=== PATIENT | female | born 1960 | race Caucasian/White ===

== ENCOUNTER 2017-11-06 09:52 | Outpatient (CLI) | payer OTHER ==
--- NOTE | 2017-11-07 11:38 | MMO ---
BILATERAL SCREENING MAMMOGRAMS: Date: 11/06/17 Comparison made to prior exams from 2014 and 2015. This patient's mammogram was interpreted with the assistance of computer-aided detection. FINDINGS: Both breasts show fatty replacement. No distortion, mass, or suspicious calcification. No interval ch hosea. Recommend one year follow-up. IMPRESSION: BIRADS 1: Negative POS: DUC
== END 2017-11-06 09:53 | disposition home or self-care (01) ==
LOC: SCSMAMMO 09:52
PROVIDERS: ATTEND Obstetrics & Gynecology
DX: Z12.31 Encounter for screening mammogram for malignant neoplasm of breast (principal)
CPT/HCPCS: 77067

== ENCOUNTER 2018-12-03 09:52 | Outpatient (CLI) | payer OTHER ==
--- NOTE | 2018-12-03 10:36 | MMO ---
Bilateral MAMMO Bilat Screen [facility]. CLINICAL HISTORY: Patient is 58 years old and is seen for screening. The patient has the following family history of breast cancer: sister, at age 24. The patient has no personal history of cancer. VIEWS: The views performed were: bilateral craniocaudal with tomosynthesis and bilateral mediolateral oblique with tomosynthesis. FILMS COMPARED: The present examination has been compared to prior imaging studies performed at [facility] on 06/11/2013, 07/27/2014, 07/27/2015, 09/19/2016 and 11/06/2017. MAMMOGRAM FINDINGS: There are scattered fibroglandular densities. There are benign appearing calcifications seen in the right breast. There are no suspicious masses, calcifications or areas of architectural distortion. IMPRESSION: CALCIFICATIONS IN THE RIGHT BREAST ARE BENIGN. A ROUTINE FOLLOW-UP MAMMOGRAM IN 1 YEAR IS RECOMMENDED. THE RESULTS OF THIS EXAM WERE SENT TO THE PATIENT. ACR BI-RADS Category 2 - Benign finding MAMMOGRAPHY NOTE: 1. A negative mammogram report should not delay a biopsy if a dominant of clinically suspicious mass is present. 2. Approximately 10% to 15% of breast cancers are not detected by mammography. 3. Adenosis and dense breasts may obscure an underlying neoplasm.
== END 2018-12-03 09:53 | disposition home or self-care (01) ==
LOC: BICMAMMO 09:52
PROVIDERS: ATTEND Obstetrics & Gynecology
DX: Z12.31 Encounter for screening mammogram for malignant neoplasm of breast (principal); R92.1 Mammographic calcification found on diagnostic imaging of breast; Z80.3 Family history of malignant neoplasm of breast
CPT/HCPCS: 77063; 77067

== ENCOUNTER 2019-01-28 07:01 | Outpatient (CLI) | payer OTHER ==
--- NOTE | 2019-01-28 07:52 | MRI ---
Lumbar spine MRI without contrast: 01/28/2019 COMPARISON: None HISTORY: Right-sided sciatica, right lower extremity radiculopathy TECHNIQUE: Multiplanar multisequence MR imaging of the lumbar spine obtained without contrast. FINDINGS: The sagittal STIR imaging demonstrates no focal area of osseous marrow edema. Lumbar vertebral body height and alignment appears within normal limits. On the basis of 5 lumbar type vertebral bodies, conus medullaris terminates at the L1-2 level. T12-L1: Intervertebral disc height and signal intensity is within normal limits. Mild bilateral facet hypertrophy. Minimal disc bulge with no significant central canal or neural foraminal stenosis. L1-2: Mild bilateral facet hypertrophy. Disc desiccation and mild disc space narrowing. Mild anterior osteophyte formation. No significant central canal or neural foraminal stenosis. L2-3: There is disc space narrowing, disc desiccation, and minimal disc bulge with no associated cent ral canal stenosis. Mild bilateral facet hypertrophy. No significant neural foraminal stenosis. Anterior osteophyte formation. L3-4: There is disc space narrowing and disc desiccation. There is a small foraminal disc protrusion on the left. There is mild bilateral facet hypertrophy. There is mild/moderate left neural foraminal stenosis. Mild right neural foraminal stenosis. No significant central canal stenosis. L4-5: There is disc space narrowing and disc desiccation with disc bulge. There is a superimposed sma ll central disc herniation with mild inferior migration. This results in mild central canal stenosis and a mild/moderate degree of the right lateral recess stenosis. Vacuum disc formation noted . Mild bilateral neural foraminal stenosis. L5-S1: Bilateral lateral osteophyte formation. Disc space narrowing, disc desiccation, and mild disc bulge. Mild central canal stenosis. Moderate bilateral neural foraminal stenosis. Imaged retroperitoneal structures appear grossly unremarkable. IMPRESSION: Multilevel lumbar spine degenerative change as detailed above.
== END 2019-01-28 07:02 | disposition home or self-care (01) ==
LOC: SCSMRI 07:01
PROVIDERS: ATTEND Internal Medicine
DX: M54.31 Sciatica, right side (principal); M47.816 Spondylosis without myelopathy or radiculopathy, lumbar region
CPT/HCPCS: 72148

== ENCOUNTER 2019-11-23 07:42 | Day surgery (SDC) | payer OTHER ==
[2019-11-22 12:40] VITALS: BMI 34.7
[2019-11-23] MEDS ORDERED: Lidocaine 1% PF 5 ML VIAL ONE (09:22)
[2019-11-23] MEDS ORDERED: PROPOFOL 200 MG/20 ML VIAL ONE (09:22)
--- NOTE | 2019-11-23 12:04 | OP ---
DATE OF PROCEDURE: 11/23/2019 PROCEDURE PERFORMED: Colonoscopy with snare polypectomy. PREMEDICATION: Given by Anesthesiology Department. PREPROCEDURE DIAGNOSES: Colon screening, average risk. POSTPROCEDURE DIAGNOSES: 1. Hepatic flexure polyp and ascending colon polyp, removed. 2. Few sigmoid diverticula. 3. Otherwise, normal colon exam. DESCRIPTION OF PROCEDURE: Written consents were obtained prior to procedure. After adequate sedation, a rectal exam was performed and was normal. The endoscope was advanced to the cecum. The quality of the bowel prep was good. The ileocecal valve and appendiceal orifice were visualized and appeared normal. The cecum appeared normal. A small 6 mm sessile polyp was noted in the ascending colon and was removed with a cold snare. At the hepatic flexure, an 8 mm sessile polyp was removed with [id number] technique using a cold snare. The polyp was retrieved. The defect was closed with a hemoclip. The transverse colon appeared normal. The splenic flexure and descending colon appeared normal. Few scattered diverticula were noted in the sigmoid colon. The rectosigmoid and rectal vault appeared normal. Retroflexion did not show any abnormality. The patient tolerated the procedure well. ASSESSMENT: 1. Ascending colon polyp and hepatic flexure polyp, removed. 2. Otherwise, normal colonoscopy. 3. Few sigmoid diverticulosis coli. RECOMMENDATIONS: 1. Await pathology results. 2. Future surveillance exam will be determined based on polyp histology. Job ID: [id number]
== END 2019-11-23 11:25 | disposition home or self-care (01) ==
LOC: SDC 07:42
PROVIDERS: ATTEND Internal Medicine Gastroenterology
PROC: 0DBL8ZZ Excision of Transverse Colon, Via Natural or Artificial Opening Endoscopic (ICD-10-PCS; principal; 2019-11-23)
PROC: 0DBK8ZZ Excision of Ascending Colon, Via Natural or Artificial Opening Endoscopic (ICD-10-PCS; principal; 2019-11-23)
DX: Z12.11 Encounter for screening for malignant neoplasm of colon (principal); D12.2 Benign neoplasm of ascending colon; D12.3 Benign neoplasm of transverse colon; K57.30 Diverticulosis of large intestine without perforation or abscess without bleeding
CPT/HCPCS: 88305; J2001; J2704

== ENCOUNTER 2019-12-06 08:54 | Outpatient (CLI) | payer OTHER ==
--- NOTE | 2019-12-06 09:29 | MMO ---
Bilateral MAMMO Bilat Screen [facility]. CLINICAL HISTORY: Patient is 59 years old and is seen for screening. The patient has the following family history of breast cancer: sister, at age 24. The patient has no personal history of cancer. VIEWS: The views performed were: bilateral craniocaudal with tomosynthesis and bilateral mediolateral oblique with tomosynthesis. FILMS COMPARED: The present examination has been compared to prior imaging studies performed at [facility] on 07/27/2015, 09/19/2016, 11/06/2017 and 12/03/2018. This study has been interpreted with the assistance of computer-aided detection. MAMMOGRAM FINDINGS: There are scattered fibroglandular densities. There are stable benign appearing calcifications seen in both breasts. There are no suspicious masses, suspicious calcifications, or new areas of architectural distortion. IMPRESSION: THERE IS NO MAMMOGRAPHIC EVIDENCE OF MALIGNANCY. A ROUTINE FOLLOW-UP MAMMOGRAM IN 1 YEAR IS RECOMMENDED. THE RESULTS OF THIS EXAM WERE SENT TO THE PATIENT. ACR BI-RADS Category 2 - Benign finding MAMMOGRAPHY NOTE: 1. A negative mammogram report should not delay a biopsy if a dominant of clinically suspicious mass is present. 2. Approximately 10% to 15% of breast cancers are not detected by mammography. 3. Adenosis and dense breasts may obscure an underlying neoplasm. Reported by: SENDY BAPTISTE MD Electonically Signed: [id number]
== END 2019-12-06 08:55 | disposition home or self-care (01) ==
LOC: BICMAMMO 08:54
PROVIDERS: ATTEND Obstetrics & Gynecology
DX: Z12.31 Encounter for screening mammogram for malignant neoplasm of breast (principal); Z80.3 Family history of malignant neoplasm of breast
CPT/HCPCS: 77063; 77067

== ENCOUNTER 2020-12-15 10:18 | Outpatient (CLI) | payer OTHER, SELFPAY ==
[2020-12-15 23:52] LABS: SARS-CoV-2 PCR by NAA Not Detected (NotDetected)
== END 2020-12-15 10:19 | disposition home or self-care (01) ==
LOC: LABBT 10:18
PROVIDERS: ATTEND Otolaryngology Plastic Surgery within the Head & Neck
DX: Z01.812 Encounter for preprocedural laboratory examination (principal); Z20.822 Contact with and (suspected) exposure to COVID-19
CPT/HCPCS: 87635; U0003; U0005

== ENCOUNTER 2021-01-04 11:50 | Outpatient (CLI) | payer BC | END 2021-01-04 11:51 | disposition home or self-care (01) | LOC: BICMAMMO 11:50 | PROVIDERS: ATTEND Obstetrics & Gynecology | DX: Z12.31 Encounter for screening mammogram for malignant neoplasm of breast (principal); Z80.3 Family history of malignant neoplasm of breast | CPT/HCPCS: 77063; 77067 ==

== ENCOUNTER 2022-03-27 11:14 | Outpatient (CLI) | payer BC | END 2022-03-27 11:15 | disposition home or self-care (01) | LOC: BICULT 11:14 | PROVIDERS: ATTEND Otolaryngology Plastic Surgery within the Head & Neck | DX: E07.89 Other specified disorders of thyroid (principal); E04.2 Nontoxic multinodular goiter | CPT/HCPCS: 76536 ==

== ENCOUNTER 2022-03-27 11:47 | Outpatient (CLI) | payer BC | END 2022-03-27 11:48 | disposition home or self-care (01) | LOC: BICMAMMO 11:47 | PROVIDERS: ATTEND Obstetrics & Gynecology | DX: Z12.31 Encounter for screening mammogram for malignant neoplasm of breast (principal); Z80.3 Family history of malignant neoplasm of breast | CPT/HCPCS: 77063; 77067 ==

== ENCOUNTER 2023-05-13 09:13 | Outpatient (CLI) | payer MEDICARE | END 2023-05-13 09:14 | disposition home or self-care (01) | LOC: BICULT 09:13 | PROVIDERS: ATTEND Otolaryngology Plastic Surgery within the Head & Neck | DX: E07.9 Disorder of thyroid, unspecified (principal) | CPT/HCPCS: 76536 ==

== ENCOUNTER 2024-03-26 09:44 | Outpatient (CLI) | payer MEDICARE | END 2024-03-26 09:45 | disposition home or self-care (01) | LOC: BICMAMMO 09:44 | PROVIDERS: ATTEND Internal Medicine | DX: M81.0 Age-related osteoporosis without current pathological fracture (principal) | CPT/HCPCS: 77080 ==

== ENCOUNTER 2024-04-23 09:54 | Outpatient (CLI) | payer MEDICARE | END 2024-04-23 09:55 | disposition home or self-care (01) | LOC: BICMAMMO 09:54 | PROVIDERS: ATTEND Obstetrics & Gynecology | DX: Z12.31 Encounter for screening mammogram for malignant neoplasm of breast (principal); Z80.3 Family history of malignant neoplasm of breast | CPT/HCPCS: 77063; 77067 ==

== ENCOUNTER 2025-05-05 13:12 | Outpatient (CLI) | payer MEDICARE | END 2025-05-05 13:13 | disposition home or self-care (01) | LOC: BICMAMMO 13:12 | PROVIDERS: ATTEND Obstetrics & Gynecology | DX: Z12.31 Encounter for screening mammogram for malignant neoplasm of breast (principal); Z80.3 Family history of malignant neoplasm of breast | CPT/HCPCS: 77063; 77067 ==

== ENCOUNTER 2025-06-22 19:59 | Emergency (ER) | payer MEDICARE ==
[2025-06-22] MEDS ORDERED: predniSONE 20 MG TAB ONE (20:17)
[2025-06-22] MEDS ORDERED: Ketorolac Tromethamine 30 MG (1 mL) VIAL ONE (21:07)
== END 2025-06-22 21:33 | disposition home or self-care (01) ==
LOC: ERS 19:59
DX: T63.441A Toxic effect of venom of bees, accidental (unintentional), initial encounter (principal); I10 Essential (primary) hypertension; E11.9 Type 2 diabetes mellitus without complications; E78.5 Hyperlipidemia, unspecified; Z79.899 Other long term (current) drug therapy; Z79.84 Long term (current) use of oral hypoglycemic drugs
CPT/HCPCS: 96372; 99282; J1885; J7512